=== PATIENT | male | born 1970 | race Caucasian/White ===

== ENCOUNTER → 2017-01-25 | Outpatient (CLI) | payer BC, OTHER ==
[~2017-01-25] MED LIST: ESOM40CA PO
== END | disposition home or self-care (01) ==
LOC: STAR 09:17
PROVIDERS: ATTEND Internal Medicine Gastroenterology
DX: Z01.810 Encounter for preprocedural cardiovascular examination (principal); D3A.010 Benign carcinoid tumor of the duodenum
CPT/HCPCS: 93005

== ENCOUNTER 2017-02-03 05:46 | Day surgery (SDC) | payer BC, OTHER ==
[~2017-02-03] VITALS: Ht 172.7 cm; Wt 86.0 kg
[2017-02-03] MEDS ORDERED: LACTATED RINGERS 1,000 ML IV SCH ×2 (06:44→07:00)
[2017-02-03] MEDS ORDERED: CHLORHEXIDINE MOUTHWASH 15 ML UDC ONE (06:55)
[2017-02-03] MEDS ORDERED: MIDAZOLAM 1 MG/ML, 5ML ONE (07:15)
[2017-02-03] MEDS ORDERED: KETAMINE 10 MG/ML, 20ML ONE (07:15)
[2017-02-03] MEDS ORDERED: ACETAMINOPHEN 325 MG TABLET PO PRN (07:30)
[2017-02-03] MEDS ORDERED: EPHEDRINE 50 MG/ML, 1ML IVPush PRN (07:30)
[2017-02-03] MEDS ORDERED: OXYcodone 5 MG/5 ML ORAL.SOL UDC PO PRN (07:30)
[2017-02-03] MEDS ORDERED: MEPERIDINE/PF 25MG/0.5ML IVPush PRN (07:30)
[2017-02-03] MEDS ORDERED: PROMETHAZINE 25 MG/ML, 1ML IV PRN (07:30)
[2017-02-03] MEDS ORDERED: MIDAZOLAM 1 MG/ML, 2ML IV PRN (07:30)
[2017-02-03] MEDS ORDERED: LABETALOL 5MG/ML, 20ML IV PRN (07:30)
[2017-02-03] MEDS ORDERED: METOCLOPRAMIDE 5 MG/ML, 2ML IV PRN (07:30)
[2017-02-03] MEDS ORDERED: HYDROmorphone 1 MG/ML, 1ML IV PRN (07:30)
[2017-02-03] MEDS ORDERED: hydrALAzine 20 MG/ML, 1ML IV PRN (07:30)
[2017-02-03] MEDS ORDERED: ONDANSETRON 2MG/ML, 2ML IVPush PRN (07:30)
[2017-02-03] MEDS ORDERED: FENTANYL PF 100 MCG/2ML IV PRN (07:30)
[2017-02-03] MEDS ORDERED: METOPROLOL 1 MG/ML, 5ML IV PRN (07:30)
[2017-02-03] MEDS ORDERED: INDOCYANINE GREEN 25 MG VIAL ONE ×2 (07:39→07:41)
[2017-02-03] MEDS ORDERED: GLYCOPYRROLATE 0.2MG/1ML ONE (15:31)
[2017-02-03] MEDS ORDERED: PROPOFOL 10 MG/ML, 20ML ONE (15:31)
[2017-02-03] MEDS ORDERED: PROPOFOL 10 MG/ML, 50ML ONE (15:31)
== END 2017-02-03 10:00 ==
LOC: OUT 05:46
PROVIDERS: ATTEND Internal Medicine Gastroenterology
DX: K31.7 Polyp of stomach and duodenum (principal); K22.70 Barrett's esophagus without dysplasia; K21.9 Gastro-esophageal reflux disease without esophagitis
CPT/HCPCS: 43236; 43251; 43254; 43259; 88305; 88341; 88342; J2250; J2704; J3490; G0461